=== PATIENT | female | born 1970 | race African-American/Black ===

== ENCOUNTER → 2020-08-18 | Outpatient (CLI) | payer BC ==
[~2020-08-18] MED LIST: ATOR20TA58 PO; SEMA0.25 SQ
--- NOTE | 2020-08-18 12:14 | EKG ---
[facility] [address] [place] [address] Test Date: 2020-08-18 Test Time: 12:10:17 Pat Name: COCO ANDUJAR Department: Room: Gender: F Automotive Mechanical Engineer: HUGH : 1970 Requested By: JUNIOR KELLEY Order Number: [id number] Reading MD: Hossein Mejía Measurements Intervals [place]dette Rate: 96 P: -31 SD: 160 QRS: 25 QRSD: 64 T: 35 QT: 332 QTc: 420 Interpretive Statements SINUS RHYTHM QRS(T) CONTOUR ABNORMALITY CONSISTENT WITH ANTEROSEPTAL INFARCT AGE UNDETERMINED ABNORMAL ECG RI6.02 No previous ECG available for comparison Electronically Signed On 08-21-2020 9:26:11 CDT by Hossein Mejía
[2020-08-18 12:20] LABS: BASO % 1 % (0-3); EOS # 0.1 x10^3/uL (0.0-0.7); EOS % 1 % (0-3); HEMATOCRIT 35.7 % (36.0-47.0); HEMOGLOBIN 11.8 g/dL (12.0-15.5); LYMPH # 2.3 x10^3/uL (1.0-4.8); LYMPH % 30 % (24-48); MEAN CORPUSCULAR HEMOGLOBIN 27 pg (25-35); MEAN CORPUSCULAR HGB CONC 33 g/dL (31-37); MEAN CORPUSCULAR VOLUME 80 fL (79-100); MONO # 0.5 x10^3/uL (0.0-1.1); MONO % 6 % (0-9); NEUT # 4.8 x10^3/uL (1.8-7.7); NEUT % 62 % (31-73); PLATELET COUNT 217 x10^3/uL (140-400); RED BLOOD COUNT 4.45 x10^6/uL (3.50-5.40); RED CELL DISTRIBUTION WIDTH 13.8 % (11.5-14.5); WHITE BLOOD COUNT 7.7 x10^3/uL (4.0-11.0)
[2020-08-18 12:21] LABS: BILIRUBIN,URINE NEGATIVE (NEG); CLARITY,URINE CLOUDY; COLOR,URINE YELLOW; NITRITE,URINE NEGATIVE (NEG); PH,URINE 6.5 (<5.0-8.0); PROTEIN,URINE NEGATIVE (NEG-TRACE)
[2020-08-18 12:31] LABS: BACTERIA,URINE MANY /HPF (0-FEW); RBC,URINE 0 /HPF (0-2); WBC,URINE 20-40 /HPF (0-4)
[2020-08-18 12:35] LABS: ALBUMIN 4.1 g/dL (3.4-5.0); ALBUMIN/GLOBULIN RATIO 1.1 (1.0-1.7); CALCIUM 9.4 mg/dL (8.5-10.1); GFR 70.5; POTASSIUM 3.8 mmol/L (3.5-5.1); TOTAL PROTEIN 7.9 g/dL (6.4-8.2)
--- NOTE | 2020-08-18 13:29 | RAD ---
EXAM: Chest, 2 views. HISTORY: Preoperative evaluation. COMPARISON: None. FINDINGS: 2 views of chest are obtained. There is no infiltrate, pleural effusion or pneumothorax. Th e heart is normal in size. IMPRESSION: No acute pulmonary finding. Electronically signed by: Priya Begum MD (08/18/2020 1:26 PM) [id number]
[2020-08-19 00:08] LABS: HEMOGLOBIN A1C 6.6 % (4.8-5.6)
== END ==
LOC: SURGPAT 10:58
PROVIDERS: ATTEND Obstetrics & Gynecology
DX: Z01.818 Encounter for other preprocedural examination (principal); E11.8 Type 2 diabetes mellitus with unspecified complications; R94.31 Abnormal electrocardiogram [ECG] [EKG]
CPT/HCPCS: 36415; 71046; 80053; 81001; 83036; 85025; 87077; 87086; 93005

== ENCOUNTER 2020-08-23 06:39 | Observation (INO) | payer BC ==
[2020-08-18 11:53] VITALS: BP 136/73
[2020-08-23] VITALS (11 sets, daily range): BP systolic 97–130; BP diastolic 58–98
[~2020-08-23] VITALS: Ht 170.2 cm; Wt 72.0 kg
[~2020-08-23 06:39] MED LIST changes: +HYDROmorphone 2 MG/ML VIAL IVP PRN; +MORPHINE SULFATE 2 MG/ML VIAL. IVP PRN; +PROCHLORPERAZINE 10 MG/2 ML VIAL. IVP PRN; +fentaNYL PF VIAL 100 MCG/2 ML VIAL IVP PRN
[2020-08-23] MEDS ORDERED: PROPOFOL 10 MG/ML (20ML) VIAL. IV ONE (06:56)
[2020-08-23] MEDS ORDERED: LIDOCAINE 2% PF 5 ML VIAL. ONE (06:56)
[2020-08-23] MEDS ORDERED: ROCURONIUM 50 MG/5 ML VIAL. ONE (06:57)
[2020-08-23] MEDS ORDERED: MIDAZOLAM HCL/PF 2 MG/2 ML VIAL. ONE (06:57)
[2020-08-23] MEDS ORDERED: fentaNYL PF VIAL 250 MCG/5 ML VIAL ONE (06:57)
[2020-08-23] MEDS: IV RINGERS,LACTATED 1000ML 1,000 ML IV SCH ×2 (07:06→10:10)
[2020-08-23] MEDS ORDERED: ESTROGENS, CONJ VAGINAL CREAM 30GM TUBE. ONE (07:15)
[2020-08-23] MEDS ORDERED: BUPIVACAINE-EPI 0.25% 30 ML VIAL KIT. ONE (07:15)
[2020-08-23] MEDS ORDERED: INDIGOTINDISULFONATE SODIUM 40 MG/5 ML AMPUL. ONE (07:16)
[2020-08-23] MEDS ORDERED: ONDANSETRON PF 4 MG/2 ML VIAL. ONE (07:52)
[2020-08-23] MEDS ORDERED: DEXAMETHASONE SOD PHOS 4 MG/ML VIAL ONE (07:52)
[2020-08-23] MEDS ORDERED: SEVOFLURANE > 120 MINUTES. IH ONE (08:05)
[2020-08-23] MEDS ORDERED: GLYCOPYRROLATE 1 MG/5 ML VIAL. ONE (09:17)
[2020-08-23] MEDS ORDERED: NEOSTIGMINE METHYLSULFATE 5 MG/5 ML SYRINGE. ONE (09:17)
[2020-08-23] MEDS ORDERED: KETOROLAC 30 MG/ML VIAL. ONE (09:50)
--- NOTE | 2020-08-23 09:58 | PDOC ---
BRIEF OPERATIVE NOTE Date: Aug 23, 2020 Pre-Op Diagnosis enlarged fibroid uterus, pain, menorrhagia Post-Op Diagnosis same Procedure Performed LAVH/RSO/left salpingectomy Surgeon Dr. Kelley Cook Frozen Dessert AUSTIN Saenz Anesthesiologist Dr. Bearden Anesthesia Type: General Blood Loss 50cc IV Fluid 850cc Urine Output 150cc Specimens Obtained cervix, uterus, right tube and ovary, left tube Findings enlarged fibroid uterus, small cyst on right ovary, normal left tube and ovary, normal appendix, grossly normal RUQ Complications none Operative Note [id number] JUNIOR KELLEY MD Aug 23, 2020 09:58
[2020-08-23] MEDS ORDERED: LACTULOSE 20 GM/30 ML SOLUTION. PO PRN (10:00)
[2020-08-23] MEDS ORDERED: ZOLPIDEM 5 MG TABLET. PO PRN (10:00)
[2020-08-23] MEDS ORDERED: SIMETHICONE 80 MG TAB.CHEW PO PRN (10:00)
[2020-08-23] MEDS ORDERED: ONDANSETRON PF 4 MG/2 ML VIAL. IV PRN (10:00)
[2020-08-23] MEDS ORDERED: NALOXONE 0.4 MG/ML VIAL. IV PRN (10:00)
[2020-08-23] MEDS ORDERED: MORPHINE SULFATE 2 MG/ML VIAL. IV PRN (10:00)
[2020-08-23] MEDS ORDERED: diphenhydrAMINE 50 MG/ML VIAL IV PRN (10:00)
[2020-08-23] MEDS ORDERED: CALCIUM CARBONATE 500 MG TAB.CHEW PO PRN (10:00)
[2020-08-23] MEDS ORDERED: HYDROcodone/APAP 5/325MG 1 TAB TABLET PO PRN (10:00)
[2020-08-23] MEDS ORDERED: 0.9 % SODIUM CHLORIDE 10 ML DISP.SYRIN. IV PRN (10:00)
[2020-08-23] MEDS ORDERED: oxyCODONE/APAP 5/325 1 TAB TABLET PO PRN (10:00)
[2020-08-23] MEDS ORDERED: diphenhydrAMINE HCL 25 MG CAPSULE PO PRN (10:00)
[2020-08-23] MEDS ORDERED: MAGNESIUM HYDROXIDE 2,400 MG/30 ML ORAL.SUSP. PO PRN (10:00)
[2020-08-23] MEDS ORDERED: MAG HYDROX/ALUMINUM HYD/SIMETH 30 ML ORAL.SUSP PO PRN (10:00)
[2020-08-23] MEDS ORDERED: INSULIN LISPRO 100 UNIT/ML 3ML VIAL for OP,RR ONLY. SQ PRN (10:15)
[2020-08-23] MEDS ORDERED: INSULIN LISPRO 100 UNIT/ML 3ML VIAL for OP,RR ONLY. SQ ONE (10:15)
--- NOTE | 2020-08-23 10:36 | OP ---
DATE OF SURGERY: 08/23/2020 PREOPERATIVE DIAGNOSES: Enlarged fibroid uterus, pain, and menorrhagia. POSTOPERATIVE DIAGNOSES: Enlarged fibroid uterus, pain, and menorrhagia. PROCEDURE: Laparoscopic assisted vaginal hysterectomy, right salpingo-oophorectomy, left salpingectomy. SURGEON: Payton Collins MD FUND ACCOUNTANT: AUSTIN Moya ANESTHESIOLOGIST: Andrés Bearden MD ANESTHESIA: General. ESTIMATED BLOOD LOSS: 50 mL. URINE OUTPUT: 150 mL clear via Masters catheter. IV FLUIDS: 850 mL of crystalloid. SPECIMENS: Cervix, uterus, right tube and ovary and left tube. FINDINGS: Enlarged fibroid uterus, small cyst on right ovary, normal left tube and ovary, normal appendix, grossly normal right upper quadrant. COMPLICATIONS: None. DESCRIPTION OF PROCEDURE: This patient was taken to the operating room where general anesthesia was placed. The patient was placed in the dorsal lithotomy position in [facility]. The patient's abdomen and vagina were both prepped and draped in the normal sterile fashion and a Masters catheter had been inserted under sterile technique. Upon my arrival, a timeout was performed. Once everyone agreed on the patient, the site and the procedure, the antibiotics, the procedure was initiated. A bivalve speculum was placed in the patient's vagina. A single-tooth tenaculum was used to grasp the anterior lip of the cervix. A 10 mL of 0.25% Marcaine with epinephrine was used to circumferentially inject around the cervix for both hemo dissection and hemostatic purposes later. The Valtchev uterine manipulator was placed through the endocervical os, locked on the single tooth tenaculum and the bivalve speculum was then removed. Top gloves were discarded and changed. Attention was then turned to the abdomen where a supraumbilical skin incision was made with the scalpel, pushing her uterus and it went just a few centimeters below the umbilicus, but she had good descent and it was mobile, so I went a few centimeters above, it was injected with local and making a small incision and placing the 5 mm Visiport and under direct visualization. Direct abdominal placement was confirmed via the laparoscope. Opening patient pressure was 3 mmHg. Carbon dioxide gas was used to then appropriately insufflate the abdominal cavity to maintain a pressure of 15 mmHg. The patient was placed in Trendelenburg and the overhead lights were dimmed. Right and left lower quadrant ports, there were no adhesions to the anterior abdominal wall, so after transilluminating the abdominal wall finding an area clear of any vasculature, she was injected with the local and a small incision was made and the 5 mm trocars were placed under direct visualization. A 4 to 5 mL of air was placed in the trocar cuff. The camera was moved laterally to look at the umbilical port. Once it was in and good, it was also insufflated with 4-5 mL of air and the trocar cuff. At this point, the left tube and ovary were elevated finding the ureter coursing low in the pelvis, staying above the ovary below the tube as she wished to retain her normal left ovary, doing a salpingectomy crossing the left ovarian pedicle with the LigaSure, cauterizing and cutting and then crossing the left round ligament, cauterizing and cutting. On the right side, elevating the right tube and ovary finding the ureter coursing well and watching it peristalsed, she desired to have the right ovary out. It did have a small cyst on it, but was otherwise okay going high on the infundibulopelvic ligament well above the level of the ureter cauterizing and cutting taking the right tube and ovary both. Going over to the uterus crossing the right round ligament as well then starting the bladder flap from the right side, pushing the uterus cephalad, elevating the bladder flap with the [place] and using the monopolar hook to cut across and gently peel down the bladder. Once the bladder flap was created, the uterine vessels were obtained on the right side, cauterizing and cutting and then staying inside this pedicle, hugging the cervix posteriorly, cauterizing and cutting going through the cardinal and broad ligaments then on the left side, staying vertical literally hugging the uterus, getting the uterine vessels and going down through the cardinal and broad ligaments, cauterizing and cutting with the LigaSure. Once this was done, there were no adhesions. The uterus was completely free, it was blanched. It was decided to remove all instruments and go vaginally. The single tooth and Valtchev were removed. A weighted speculum was placed in the patient's vagina. Thyroid Feng clamps were placed on the anterior and posterior lips of the cervix respectively. Scalpel was used to make a circumferential incision in the cervix. Sharply and bluntly, the bladder was taken off the cervix gently using the tip of the suction plastic tip to give some traction and using the sharp flat edge of the scalpel to gently peel off, dissect between the cervix and the bladder edge. Once it was up, I gently used an open Ray-Keri 4 x 4, pushed it up and entered the anterior cul-de-sac. The 4 x 4 was passed back off and the curved Roderick was placed in the anterior cul-de-sac. The cervix was elevated and the posterior cul-de-sac was sharply entered with curved Harris scissors. A #0 Vicryl stitch was used to secure the posterior peritoneum here to the vaginal cuff, tying it, cutting the needle off, tagging it with a curved Angelica clamp. The short weighted speculum was removed and replaced with the long weighted Suze speculum in the posterior cul-de-sac. Curved Trace clamps x 2 were placed on the patient's left uterosacral ligament where they were doubly clamped with curved Heaneys, cut with curved Harris scissors and suture ligated x 2 with 0 Vicryl. The second one was taken through the vaginal cuff securing uterosacral ligament to the vaginal cuff, tying it and tagging it with a straight Angelica clamp, cutting and passing the needle off. This was done exactly the same on the right side, double clamping the uterosacrals with curved Heaneys, cutting with curved Harris scissors and suture ligating x 2 with 0 Vicryl, taking the second one through the vaginal cuff, securing the uterosacral ligament to the vaginal cuff, tagging it with a straight Angelica clamp, cutting and passing the needle off. The remaining pedicle on both sides were delineated with a mixture, the right angle clamp and the vaginal LigaSure was used to cauterize and cut the remaining pedicle, first on the patient's left side, making sure it was free then the right side then the cervix was wedged out in total, placing a tenaculum posteriorly and using it to kind of wedge out, but the cervix, uterus, right tube and ovary and left tube were delivered in total and passed off for permanent pathology. A sponge stick was used to examine the pedicles. There was some very slight bleeding from the left side beneath the uterosacral ligament, so it was barely cauterized with excellent results. The long speculum was removed and replaced with the short weighted vaginal speculum. A long Allis was used to grasp the anterior bladder peritoneum and 2-0 Vicryl was taken through the anterior bladder peritoneum, left uterosacral ligament, posterior peritoneum and right uterosacral ligament, thus closing the peritoneum in a pursestring like fashion. Before doing this, I did put a couple of interrupted sutures in the cuff with excellent results where there was just some cuff bleeding posteriorly. Then, I closed the peritoneum in a pursestring like fashion, cut the right and left uterosacral tags and a folding 2-0 Vicryl was used to close the cuff in an anterior to posterior running locked fashion and tied to the posterior cuff tag. I did put in interrupted stitch in for hemostasis and security with excellent results. Examining it with a sponge stick, it was completely dry. All instruments were accounted below before going above and were correct x 2 by OR personnel. Attention was turned above for a second look where the patient was placed back in Trendelenburg, overhead lights were redimmed, gas was reinsufflated, copious irrigation revealed hemostasis. Tisseel was placed over the pedicles and cuff. The right and left pericolic gutters were clear. The appendix was noted clear. The right upper quadrant looked good. Pictures were taken of all of the above and she still has her left ovary as per her request, everything else was removed. At this point, 4 to 5 mL of air was taken out of all three trocars. The right lower quadrant was removed first then the left and then the gas was taken down and the umbilical port was removed as well after gas was released. All three port sites were closed with 4-0 nylon. The catheter was removed. The patient was awakened from anesthesia and brought to recovery room in stable condition. MADIHA DR: Carmelo TID: [id number]
[2020-08-24 02:12] VITALS: BP 91/49
--- NOTE | 2020-08-24 04:43 | NUR ---
BP 91/49. IVF patent. Taking food w/o N/V. Medicated w/ Percocet x1. Slept well.
[2020-08-24 05:41] LABS: CALCIUM 8.4 mg/dL (8.5-10.1); CREATININE 1.1 mg/dL (0.6-1.0); GFR 63.1
[2020-08-24 06:03] VITALS: BP 85/51
--- NOTE | 2020-08-24 06:06 | NUR ---
BP 85/51. Denies feeling dizzy, sweaty, or seeing "spots before her eyes". States baseline BP 120s/80s. Taking po w/o N/V. No active bleeding noted.
--- NOTE | 2020-08-24 08:17 | PDOC ---
SURGICAL PROGRESS NOTE DATE: 08/24/20 TIME: 08:13 Subjective feeling much better this am, up eating fruit in chair, yesterday had bad nausea. Scant Vb, voiding without catheter Vital Signs Vital Signs Date Time Temp Pulse Resp B/P (MAP) Pulse Ox O2 Delivery O2 Flow Rate FiO2 08/24/20 06:03 98.4 105 16 85/51 (62) 96 Room Air 98.4 08/23/20 10:31 10 I&O Intake and Output 08/24/20 07:00 Intake Total 1660 ml Output Total 500 ml Balance 1160 ml Intake Oral 410 ml IV Total 1250 ml Output Urine Total 450 ml Estimated Blood Loss 50 ml PATIENT HAS A MCBRIDE: No General: Alert, Oriented X3, Cooperative, No acute distress HEENT: Atraumatic Heart: Regular rate Abdomen: Soft, Other (all port sites c/d/i) Extremities: No clubbing, No cyanosis, No edema, No tenderness/swelling Skin: No rashes, No breakdown Neuro: Normal speech Psych/Mental Status: Mental status NL, Mood NL Labs Laboratory Tests Test 08/23/20 05:34 08/23/20 07:37 08/23/20 09:58 08/23/20 20:31 Bedside Urine HCG, Qualitative Hcg negative (Negative) Glucose (Fingerstick) 91 mg/dL (70-99) 175 mg/dL (70-99) 115 mg/dL (70-99) Test 08/24/20 04:00 08/24/20 06:21 Hematocrit 30.8 % (36.0-47.0) Sodium Level 140 mmol/L (136-145) Potassium Level 4.0 mmol/L (3.5-5.1) Chloride Level 105 mmol/L (98-107) Carbon Dioxide Level 26 mmol/L (21-32) Anion Gap 9 (6-14) Blood Urea Nitrogen 13 mg/dL (7-20) Creatinine 1.1 mg/dL (0.6-1.0) Estimated GFR (Cockcroft-Gault) 63.1 Glucose Level 102 mg/dL (70-99) Calcium Level 8.4 mg/dL (8.5-10.1) Glucose (Fingerstick) 93 mg/dL (70-99) Laboratory Tests Test 08/23/20 09:58 08/23/20 20:31 08/24/20 04:00 08/24/20 06:21 Glucose (Fingerstick) 175 mg/dL (70-99) 115 mg/dL (70-99) 93 mg/dL (70-99) Hematocrit 30.8 % (36.0-47.0) Sodium Level 140 mmol/L (136-145) Potassium Level 4.0 mmol/L (3.5-5.1) Chloride Level 105 mmol/L (98-107) Carbon Dioxide Level 26 mmol/L (21-32) Anion Gap 9 (6-14) Blood Urea Nitrogen 13 mg/dL (7-20) Creatinine 1.1 mg/dL (0.6-1.0) Estimated GFR (Cockcroft-Gault) 63.1 Glucose Level 102 mg/dL (70-99) Calcium Level 8.4 mg/dL (8.5-10.1) I have reviewed the following labs, vitals, nursing Endocrine: Diabetes Assessment/Plan POD#1 s/p LAVH/RSO/left salpingecvtomy Routine po care dc to home later today light/limited activity x 2 weeks NPV x 6 weeks keep scheduled f/u in one week in the office already has narcotics at home ok for OTC ibuprofen as needed as well call or return sooner if any questions or concerns not limited to but including pain unrelieved with pain meds, increased or unexplained vb, T>100.4 Justicifation of Admission Dx: Justifications for Admission: Justification of Admission Dx: Yes JUNIOR KELLEY MD Aug 24, 2020 08:17
--- NOTE | 2020-08-24 08:19 | PDOC3 ---
Discharge Summary Visit Information Date of Admission: Aug 23, 2020 Date of Discharge: Aug 24, 2020 Final Diagnosis enlarged fibroid uterus, menorrhagia Brief Hospital Course Allergies Allergies Coded Allergies Type Severity Reaction Last Updated Verified latex Allergy Intermediate Hives 08/18/20 Yes Vital Signs Vital Signs Date Time Temp Pulse Resp B/P (MAP) Pulse Ox O2 Delivery O2 Flow Rate FiO2 08/24/20 06:03 98.4 105 16 85/51 (62) 96 Room Air 98.4 08/23/20 10:31 10 Lab Results Laboratory Tests Test 08/23/20 05:34 08/23/20 07:37 08/23/20 09:58 08/23/20 20:31 Bedside Urine HCG, Qualitative Hcg negative (Negative) Glucose (Fingerstick) 91 mg/dL (70-99) 175 mg/dL (70-99) 115 mg/dL (70-99) Test 08/24/20 04:00 08/24/20 06:21 Hematocrit 30.8 % (36.0-47.0) Sodium Level 140 mmol/L (136-145) Potassium Level 4.0 mmol/L (3.5-5.1) Chloride Level 105 mmol/L (98-107) Carbon Dioxide Level 26 mmol/L (21-32) Anion Gap 9 (6-14) Blood Urea Nitrogen 13 mg/dL (7-20) Creatinine 1.1 mg/dL (0.6-1.0) Estimated GFR (Cockcroft-Gault) 63.1 Glucose Level 102 mg/dL (70-99) Calcium Level 8.4 mg/dL (8.5-10.1) Glucose (Fingerstick) 93 mg/dL (70-99) Laboratory Tests Test 08/23/20 09:58 08/23/20 20:31 08/24/20 04:00 08/24/20 06:21 Glucose (Fingerstick) 175 mg/dL (70-99) 115 mg/dL (70-99) 93 mg/dL (70-99) Hematocrit 30.8 % (36.0-47.0) Sodium Level 140 mmol/L (136-145) Potassium Level 4.0 mmol/L (3.5-5.1) Chloride Level 105 mmol/L (98-107) Carbon Dioxide Level 26 mmol/L (21-32) Anion Gap 9 (6-14) Blood Urea Nitrogen 13 mg/dL (7-20) Creatinine 1.1 mg/dL (0.6-1.0) Estimated GFR (Cockcroft-Gault) 63.1 Glucose Level 102 mg/dL (70-99) Calcium Level 8.4 mg/dL (8.5-10.1) Brief Hospital Course Ms. Gr is a 50 old female who presented with menorrhagia and enlarged fibroid uterus. She underwent LAVH/RSO/left salpingectomy yesterday without complications. She had some nausea yesterday that has resolved today. Sugars overall ok, feeling better, scant VB, voiding without catheter and will be discharged to home later today. Assessment Assessment POD#1 s/p LAVH/RSO/left salpingecvtomy Routine po care dc to home later today light/limited activity x 2 weeks NPV x 6 weeks keep scheduled f/u in one week in the office already has narcotics at home ok for OTC ibuprofen as needed as well call or return sooner if any questions or concerns not limited to but including pain unrelieved with pain meds, increased or unexplained vb, T>100.4 Discharge Information Condition at Discharge: Stable Follow Up: Weeks Disposition/Orders: D/C to Home Scheduled Atorvastatin Calcium (Atorvastatin Calcium) 20 Mg Tablet, 20 MG PO HS for FOR CHOLESTEROL, #30 Ref 0 (Reported) Entered as Reported by: ZAYNAB HOOPER on 08/18/20 1148 Last Taken: Unknown Dose on 08/21/20 Last Action: Reviewed on 08/23/20636 by ZAYNAB HOOPER Semaglutide (Ozempic) 0.25 Mg/0.2 Ml Pen.injctr, 0.5 MG SQ WEEKLY for DIABETES, (Reported) Entered as Reported by: ZAYNAB HOOPER on 08/18/20 1150 Last Taken: Unknown Dose on 08/19/20 Last Action: Reviewed on 08/23/20636 by ZAYNAB HOOPER Patient Instructions Patient Instructions POD#1 s/p LAVH/RSO/left salpingecvtomy Routine po care dc to home later today light/limited activity x 2 weeks NPV x 6 weeks keep scheduled f/u in one week in the office already has narcotics at home ok for OTC ibuprofen as needed as well call or return sooner if any questions or concerns not limited to but including pain unrelieved with pain meds, increased or unexplained vb, T>100.4 resume all home meds at home Justicifation of Admission Dx: Justifications for Admission: Justification of Admission Dx: Yes JUNIOR KELLEY MD Aug 24, 2020 08:19
--- NOTE | 2020-08-24 10:00 | NUR ---
Up in chair talking on cell phone. No c/o nausea this am. Tolerated breakfast this morning. Encourage pt to ambulate hallways. Verbalized understanding. Cont. monitor.
[2020-08-24 11:11] VITALS: BP 113/70
--- NOTE | 2020-08-24 15:40 | NUR ---
Discharge instructions given. Prescriptions given prior to admission. Answered questions and concerns. Verbalized understanding. Pt discharged home accompanied by significant other and daughter. Escorted out by w/c. Addendum: 08/24/20 at 1643 by FAVIAN RYDER RN Pt discharged at 1340 not 1642.
--- NOTE | 2020-08-25 08:26 | PATHOLOGY ---
[facility] Accession Number: [id number] . 01 Material submitted: . uterus - UTERUS CERVIX RIGHT TUBE AND OVARY LEFT TUBE . 01 Clinical history: . MENORRHAGIA,UTERINE FIBROIDS LAVH R S+O,LEFT TUBE SALPINGECTOMY . 02 Diagnosis: Uterus with attached right ovary and left fallopian tube, laparoscopic-assisted vaginal hysterectomy with right oophorectomy and left salpingectomy: - Leiomyomas, uterine corpus, multiple, subserosal and intramural, the largest measuring 3.8 cm in greatest dimension (uterine weight 294 grams). - Mild chronic cervicitis with focal squamous metaplasia. - Slightly disordered proliferative endometrium. - Adenomyosis, uterine corpus, focal. - Focally hemorrhagic cystic follicles of right ovary. - Endometriosis of left fallopian tube. (JPM:carlos; 08/24/2020) [facility] 08/25/2020 0805 Local . 02 Comment: There is no atypia or evidence of malignancy. There is no right fallopian tube present. (JPM:carlos; 08/24/2020) . 02 Electronically signed: . Shayan Barahona MD, Pathologist NPI- [id number] . 01 Gross description: . Labeled: Uterus cervix right tube and ovary, left tube . Please note: The right fallopian tube is absent . Specimen received: in formalin Specimen received as uterus with cervix with attached right ovary and attached left fallopian tube Uterus weight: 294 gm Uterus: 12 x 9 x 5.5 cm Serosa: pink-dahl and distorted by subserosal nodules; inked as anterior blue and posterior black 3 gm fimbriated Left fallopian tube: 5.5 cm in length, 0.6 cm in diameter Left fallopian tube appearance: Fimbriated end is nearly absent 5 gm Right ovary: 3.5 x 2.7 x 1.8 cm Right ovary appearance: Solid to cystic with hemorrhagic cyst measuring up to 0.9 cm without papillary excrescences Ectocervix: Disrupted and hemorrhagic Cervical os: patent, measuring 0.7 cm Endocervical canal: squamo-columnar junction visualized Endometrial cavity: 6 x 2.1 cm Endometrial thickness: 0.2 cm Myometrial thickness: 5.7 cm with firm bradley-white whorled and rubbery myometrial nodules measuring up to 3.8 cm without any areas of hemorrhage and softening or necrosis Lesions/abnormalities: None . Pattern Duplicator sections are submitted as follows: A1-A2 right ovary A3-A4 left fallopian tube A5 anterior cervix A6 posterior cervix A7-A8 anterior endomyometrium A9-A10 posterior endomyometrium ([facility]; 08/23/2020) . . MARICEL/MARICEL 08/24/2020 1749 Local . 02 Pathologist provided ICD-10: D25.2, D25.1, N72, N80.0, N80.2 . 02 CPT . 205545 Specimen Comment: A courtesy copy of this report has been sent to [phone] Specimen Comment: Report sent to Performed at: 01 [facility] [address], [place], [place] [id number] MD Gabriel Malik MD Phone: [phone] Performed at: 02 [facility] [address], [place] [id number] MD Shayan Barahona MD Phone: [phone]
== END 2020-08-24 13:40 | disposition home or self-care (01) ==
LOC: SURG 06:39 → EDUNIT# 07:30 → 4 SOUTHEST 10:00
PROVIDERS: ADMIT Obstetrics & Gynecology; ATTEND Obstetrics & Gynecology
DX: D25.9 Leiomyoma of uterus, unspecified (principal); N92.0 Excessive and frequent menstruation with regular cycle; N83.201 Unspecified ovarian cyst, right side
CPT/HCPCS: 36415; 58554; 80048; 81025; 82962; 85014; 86850; 86900; 86901; 88307; 96361; 96374; 96375; A4344; A4930; A6219; G0378; G0379; J0690; J0780; J1100; J1815; J1885; J2250; J2405; J2704; J2710; J3010; J3480; J3490; J7120; A4315; A4657